=== PATIENT | male | born 1995 | race Two or more races ===

== ENCOUNTER 2019-07-02 12:44 | Emergency (ER) | payer SELFPAY ==
[~2019-07-02] VITALS: Ht 182.9 cm; Wt 99.8 kg
[2019-07-02 12:55] VITALS: BP 134/82
== END 2019-07-02 14:14 | disposition home or self-care (01) ==
LOC: ER 12:44
DX: L02.211 Cutaneous abscess of abdominal wall (principal); L02.31 Cutaneous abscess of buttock